=== PATIENT | male | born 1940 | race Caucasian/White ===

== ENCOUNTER 2019-01-12 09:39 | Emergency (ER) | payer MEDICARE, OTHER ==
[~2019-01-12] VITALS: Ht 177.8 cm; Wt 89.1 kg
[2019-01-12] MEDS ORDERED: LISI-662 PO (09:47)
[2019-01-12] MEDS ORDERED: LEVO25TA9 PO (09:47)
[2019-01-12] MEDS ORDERED: FURO40 PO (09:47)
[2019-01-12] MEDS ORDERED: CARV3 PO (09:47)
[2019-01-12 10:50] LABS: APPEARANCE,URINE CLOUDY (CLEAR); BILIRUBIN,URINE NEGATIVE (NEGATIVE); GLUCOSE, URINE (UA) NEGATIVE (NEGATIVE); KETONES,URINE NEGATIVE (NEGATIVE); LEUKOCYTE ESTERASE ,URINE MODERATE (NEGATIVE); NITRATE,URINE NEGATIVE (NEGATIVE); OCCULT BLOOD,URINE NEGATIVE (NEGATIVE); PROTEIN,URINE NEGATIVE (NEGATIVE); UROBILINOGEN,URINE 0.2 mg/dL (<=1.0)
[2019-01-12 10:57] LABS: BACTERIA,URINE Moderate /HPF (None Seen); RBC,URINE 0-2 /HPF (0-2)
[2019-01-12 12:05] VITALS: BP 135/81
== END 2019-01-12 12:20 | disposition home or self-care (01) ==
LOC: EMS 09:40
DX: N39.0 Urinary tract infection, site not specified (principal); I11.0 Hypertensive heart disease with heart failure; I50.9 Heart failure, unspecified; E03.9 Hypothyroidism, unspecified; Z79.899 Other long term (current) drug therapy
CPT/HCPCS: 87086

== ENCOUNTER 2024-11-12 00:19 | Emergency (ER) | payer MEDICARE, MEDICAID ==
[~2024-11-12] VITALS: Ht 172.7 cm; Wt 96.4 kg
[~2024-11-12 00:19] MED LIST: CARV3 PO; FURO40TA6 PO; LEVO25TA9 PO; LISI-894 PO
[2024-11-12 00:44] VITALS: BP 144/68; PULSE 98; RESP 16; TEMP 98; O2SAT 97
[2024-11-12 01:29] LABS: APPEARANCE,URINE HAZY (CLEAR); BILIRUBIN,URINE NEGATIVE (NEGATIVE); COLOR,URINE LIGHT ORANGE (YELLOW); GLUCOSE, URINE (UA) NEGATIVE (NEGATIVE); KETONES,URINE NEGATIVE (NEGATIVE); LEUKOCYTE ESTERASE ,URINE LARGE (NEGATIVE); NITRATE,URINE NEGATIVE (NEGATIVE); OCCULT BLOOD,URINE LARGE (NEGATIVE); PROTEIN,URINE 30-70 mg/dL (NEGATIVE); SPECIFIC GRAVITIY, URINE 1.017 (1.003-1.030); UROBILINOGEN,URINE <=1.0 mg/dL (<=1.0)
[2024-11-12 01:52] LABS: RBC,URINE 26-50 /HPF (0-2)
[2024-11-12 01:53] LABS: BACTERIA,URINE Many /HPF (None Seen); SQUAMOUS EPITHELIAL CELL,UR Few /LPF (None Seen); WBC,URINE 26-50 /HPF (0-5)
[2024-11-12] MEDS ORDERED: CEFU500T67 PO (02:44)
[2024-11-12] MEDS: CEFUROXIME AXETIL 250 MG TABLET PO ONE (03:16)
== END 2024-11-12 03:21 | disposition home or self-care (01) ==
LOC: EMS 00:21
DX: N39.0 Urinary tract infection, site not specified (principal); I10 Essential (primary) hypertension; E03.9 Hypothyroidism, unspecified; Z87.440 Personal history of urinary (tract) infections
CPT/HCPCS: 81001; 87077; 87086; 87186; 99283